=== PATIENT | male | born 1995 | race Caucasian/White ===

== ENCOUNTER 2017-01-18 09:45 | Emergency (ER) | payer OTHER ==
[~2017-01-18] VITALS: Ht 182.9 cm; Wt 117.0 kg
[2017-01-18 12:15] VITALS: BP 129/78
== END 2017-01-18 12:15 | disposition home or self-care (01) ==
LOC: ED 09:45
DX: S62.326A Displaced fracture of shaft of fifth metacarpal bone, right hand, initial encounter for closed fracture (principal); S70.02XA Contusion of left hip, initial encounter; S30.1XXA Contusion of abdominal wall, initial encounter; S20.219A Contusion of unspecified front wall of thorax, initial encounter; S90.01XA Contusion of right ankle, initial encounter; V47.5XXA Car driver injured in collision with fixed or stationary object in traffic accident, initial encounter; W22.10XA Striking against or struck by unspecified automobile airbag, initial encounter; Y93.89 Activity, other specified; Y99.8 Other external cause status; Y92.89 Other specified places as the place of occurrence of the external cause

== ENCOUNTER 2017-03-30 17:13 | Emergency (ER) | payer OTHER ==
[2017-03-30 17:33] VITALS: BP 136/85
== END 2017-03-30 18:08 | disposition home or self-care (01) ==
LOC: ED 17:13
DX: N48.1 Balanitis (principal)
CPT/HCPCS: 87491; 87591

== ENCOUNTER 2017-06-15 16:59 | Emergency (ER) | payer OTHER ==
[2017-06-15 19:54] VITALS: BP 147/84
[2017-06-17 06:23] LABS: RAPID PLASMA REAGIN Non Reactive (Non Reactive)
== END 2017-06-15 19:54 | disposition home or self-care (01) ==
LOC: ED 16:59
PROVIDERS: Emergency Medicine
DX: B37.49 Other urogenital candidiasis (principal)
CPT/HCPCS: 87491; 87591

== ENCOUNTER 2017-10-20 19:54 | Emergency (ER) | payer OTHER ==
[~2017-10-20] VITALS: Ht 182.9 cm; Wt 122.5 kg
[2017-10-20 20:12] VITALS: Ht 182.9 cm; Wt 122.5 kg
[2017-10-20 23:00] VITALS: BP 132/75
== END 2017-10-20 23:00 | disposition home or self-care (01) ==
LOC: ED 19:54
DX: J40 Bronchitis, not specified as acute or chronic (principal)

== ENCOUNTER 2018-01-24 18:08 | Emergency (ER) | payer OTHER ==
[~2018-01-24] VITALS: Ht 182.9 cm; Wt 122.1 kg
[2018-01-24 18:26] VITALS: Ht 182.9 cm; Wt 122.1 kg
[2018-01-24 20:52] VITALS: BP 153/98
== END 2018-01-24 20:52 | disposition home or self-care (01) ==
LOC: ED 18:08
PROC: 2W3JX1Z Immobilization of Right Finger using Splint (ICD-10-PCS; principal; 2018-01-24)
DX: S63.616A Unspecified sprain of right little finger, initial encounter (principal); S60.416A Abrasion of right little finger, initial encounter; W23.0XXA Caught, crushed, jammed, or pinched between moving objects, initial encounter; Y92.9 Unspecified place or not applicable
CPT/HCPCS: A4570

== ENCOUNTER 2018-06-30 08:39 | Emergency (ER) | payer OTHER ==
[~2018-06-30] VITALS: Ht 182.9 cm; Wt 114.8 kg
[2018-06-30 08:52] VITALS: Ht 182.9 cm; Wt 114.8 kg
[2018-06-30 10:48] VITALS: BP 116/49
== END 2018-06-30 10:46 | disposition home or self-care (01) ==
LOC: ED 08:39
DX: T39.1X5A Adverse effect of 4-Aminophenol derivatives, initial encounter (principal); Z98.890 Other specified postprocedural states; Y92.89 Other specified places as the place of occurrence of the external cause
CPT/HCPCS: J1200; J7512

== ENCOUNTER 2018-10-02 19:14 | Emergency (ER) | payer OTHER ==
[~2018-10-02] VITALS: Ht 182.9 cm; Wt 113.4 kg
[2018-10-02 20:11] VITALS: Ht 182.9 cm; Wt 113.4 kg
[2018-10-02 23:22] VITALS: BP 105/80
== END 2018-10-02 23:22 | disposition home or self-care (01) ==
LOC: ED 19:14
DX: M54.5 Low back pain (principal); Z90.89 Acquired absence of other organs
CPT/HCPCS: J1885; Q0092

== ENCOUNTER 2020-09-22 16:35 | Emergency (ER) | payer OTHER ==
[~2020-09-22] VITALS: Ht 182.9 cm; Wt 112.9 kg
[2020-09-22 16:42] VITALS: Ht 182.9 cm; Wt 112.9 kg
[2020-09-22] MEDS ORDERED: BETAMETHASONE D1 CR2 TOP (17:03)
[2020-09-22 17:19] VITALS: BP 144/83
== END 2020-09-22 17:19 | disposition home or self-care (01) ==
LOC: ED 16:35
DX: R21 Rash and other nonspecific skin eruption (principal); Z88.8 Allergy status to other drugs, medicaments and biological substances